=== PATIENT | male | born 1960 ===

== ENCOUNTER 2017-07-05 05:30 | Emergency (ER) | payer BC ==
[2017-07-05 05:45] VITALS: O2SAT 98
--- NOTE | 2017-07-05 05:57 | C.PDOC ---
History Of Present Illness 56 years old male presents to ED with complaints of left sided rib and back pain that began 3 days ago. Patient states pain started at work after lifting a heavy box and twisted to the left and felt a pull. Patient reports he took Tylenol extra strength and Aleve with mild relief. He also states pain is worse with movement. Denies any direct injury to ribs, palpitations, SOB, dizziness, numbness or weakness. Time Seen by Provider: 07/05/17 05:47 Chief Complaint (Nursing): Rib Injury History Per: Patient History/Exam Limitations: no limitations Onset/Duration Of Symptoms: Days (3) Current Symptoms Are (Timing): Still Present Recent travel outside of the [place]: No Past Medical History Reviewed: Historical Data, Nursing Documentation, Vital Signs Vital Signs: Last Vital Signs Temp 97.9 F 07/05/17 06:42 Pulse 93 H 07/05/17 06:42 Resp 18 07/05/17 06:42 BP 124/77 07/05/17 06:42 Pulse Ox 98 07/05/17 06:43 - Medical History PMH: No Chronic Diseases Surgical History: No Surg Hx Family History: States: No Known Family Hx - Social History Hx Alcohol Use: Yes Hx Substance Use: No Review Of Systems Constitutional: Negative for: Fever, Chills Cardiovascular: Negative for: Chest Pain Gastrointestinal: Negative for: Nausea, Vomiting, Abdominal Pain, Diarrhea Musculoskeletal: Positive for: Back Pain (upper back ), Other (left sided rib pain) Neurological: Negative for: Weakness, Numbness Physical Exam - Physical Exam Appears: Non-toxic, No Acute Distress Skin: Normal Color, Warm, Dry, No Diaphoretic, No Ecchymosis Head: Atraumatic, Normacephalic Eye(s): bilateral: Normal Inspection Oral Mucosa: Moist Neck: Supple Chest: Symmetrical, No Deformity, Tenderness (mildly tender on palpation to left lower lateral chest wall no bony tenderness), No Ecchymosis, No Subcutaneous Emphysema Cardiovascular: Rhythm Regular, No Murmur Respiratory: Normal Breath Sounds, No Decreased Breath Sounds, No Rales, No Rhonchi, No Wheezing Gastrointestinal/Abdominal: Soft, No Tenderness, No Distention Back: Normal Inspection, No CVA Tenderness, No Vertebral Tenderness, No Paraspinal Tenderness, Other (left sided latissumus dorsi tenderness) Extremity: No Tenderness Neurological/Psych: Oriented x3, Normal Speech ED Course And Treatment O2 Sat by Pulse Oximetry: 98 (RA) Pulse Ox Interpretation: Normal Medical Decision Making Medical Decision Making: Patient with left rib and back pain after lifting heavy object. Pain is reproducible and no trauma to suspect rib fx. Patient denies any palpitations or SOB. Will treat with toradol and valium. Disposition Counseled Patient/Family Regarding: Diagnosis, Need For Followup, Rx Given - Disposition Referrals: [facility] [Outside] [facility] [Outside] [facility] [Outside] Disposition: HOME/ ROUTINE Disposition Time: 06:40 Condition: IMPROVED Additional Instructions: Apply heat to area for 15-20 minutes at a time 2-3 times per day Take Motrin for pain every 6-8 hours as needed, with food to not upset stomach Take Flexeril for muscle pain and spasm every 6-8 hours as needed, caution can cause drowsiness Follow up with your primary medical doctor or clinic in 2-5 days for further evaluation Return to the emergency department at any time if symptoms persist or worsen. Prescriptions: Cyclobenzaprine [Cyclobenzaprine HCl] 10 mg PO TID #21 tab Ibuprofen [Motrin] 600 mg PO Q8 #30 tab Instructions: Muscle Strain (DC) Forms: [employer] ([place]) - POA Present On Arrival: None - Clinical Impression Clinical Impression: Chest wall muscle strain - PA / [employer] / Resident Statement MD/DO has reviewed & agrees with the documentation as recorded. - Scribe Statement The provider has reviewed the documentation as recorded by the Joelleibnohemy Michael All medical record entries made by the Joelleibnohemy were at my direction and personally dictated by me. I have reviewed the chart and agree that the record accurately reflects my personal performance of the history, physical exam, medical decision making, and the department course for this patient. I have also personally directed, reviewed, and agree with the discharge instructions and disposition.
[2017-07-05 06:45] VITALS: BP 124/77; PULSE 93; RESP 18; TEMP 97.9
== END 2017-07-05 06:46 | disposition home or self-care (01) ==
LOC: C.ER 05:30
DX: S29.011A Strain of muscle and tendon of front wall of thorax, initial encounter (principal); X50.0XXA Overexertion from strenuous movement or load, initial encounter; Y92.89 Other specified places as the place of occurrence of the external cause; Y99.0 Civilian activity done for income or pay
CPT/HCPCS: 96372; 99284; J1885